=== PATIENT | male | born 1960 | race Hispanic/Latino ===

== ENCOUNTER → 2020-08-09 | Outpatient (CLI) | payer OTHER ==
[~2020-08-09] MED LIST: ALBUTEROL SULFATE 0.083% 2.5 MG/3 ML INH IH ONE
== END | disposition home or self-care (01) ==
LOC: RESP 08:46
PROVIDERS: ATTEND Orthopaedic Surgery
DX: J98.4 Other disorders of lung (principal)
CPT/HCPCS: 71046; 94060